=== PATIENT | male | born 1965 | race Caucasian/White ===

== ENCOUNTER 2023-04-15 10:20 | Emergency (ER) | payer BC ==
[~2023-04-15] VITALS: Ht 175.3 cm; Wt 136.1 kg
[~2023-04-15 10:20] MED LIST: ACET-10509 PO; CEPH-588 PO; PYR100 PO
[2023-04-15 10:51] VITALS: BP 141/90; PULSE 82; RESP 20; TEMP 96.8; O2SAT 99
[2023-04-15 11:47] LABS: APPEARANCE,URINE CLEAR (CLEAR); BILIRUBIN,URINE NEGATIVE (NEGATIVE); BLOOD, URINE NEGATIVE (NEGATIVE); COLOR,URINE YELLOW (YELLOW); LEUKOCYTE ESTERASE ,URINE NEGATIVE (NEGATIVE); NITRITE, URINE NEGATIVE (NEGATIVE); PROTEIN,URINE NEGATIVE (NEGATIVE); UGLUCOSE NEGATIVE (NEGATIVE); UROBILINOGEN,URINE 0.2 EU/dL (0.2 - 1)
[2023-04-15 13:00] VITALS: BP 115/65; PULSE 76; RESP 16; TEMP 98.7; O2SAT 98
== END 2023-04-15 13:00 | disposition home or self-care (01) ==
LOC: MED 10:20
DX: N39.0 Urinary tract infection, site not specified (principal); Z79.899 Other long term (current) drug therapy
CPT/HCPCS: 81003; 99283